=== PATIENT | male | born 1945 | race Caucasian/White ===

== ENCOUNTER 2021-05-11 09:59 | Outpatient (CLI) | payer MEDICARE | END 2021-05-11 10:00 | disposition home or self-care (01) | LOC: CSHCT 09:59 | PROVIDERS: ATTEND Otolaryngology Plastic Surgery within the Head & Neck | DX: H72.91 Unspecified perforation of tympanic membrane, right ear (principal); H92.11 Otorrhea, right ear; H74.93 Unspecified disorder of middle ear and mastoid, bilateral | CPT/HCPCS: 70480 ==